=== PATIENT | male | born 1990 | race Caucasian/White ===

== ENCOUNTER 2016-09-17 21:23 | Emergency (ER) | payer SELFPAY ==
[2016-09-17] MEDS ORDERED: ONDANSETRON HCL 4 MG/2 ML 4 MG in SODIUM CHLORIDE 0.9% 100 ML 100 ML IV ONE (21:37)
[2016-09-17] MEDS ORDERED: SODIUM CHLORIDE 0.9% 1000ML 1,000 ML IV NR ×4 (21:45→23:45)
[2016-09-17] MEDS ORDERED: ONDANSETRON HCL 4 MG/2 ML SOL IV ONE (21:47)
[2016-09-17] MEDS ORDERED: ONDANSETRON HCL 4 MG/2 ML SOL ONE (21:48)
[2016-09-17] MEDS ORDERED: SODIUM CHLORIDE 0.9% 1000ML 1,000 ML IV ONE ×4 (21:50→22:57)
[2016-09-17 21:51] LABS: HEMATOCRIT 41 % (39-53); MEAN CORPUSCULAR VOLUME 89 fL (80-100)
[2016-09-17 22:01] LABS: BASOPHILS % (MANUAL) 0 % (0-3); EOSINOPHILS % (MANUAL) 0 % (0-9); LYMPHOCYTES % (MANUAL) 0 % (10-50); NORMAL RBCS PRESENT
[2016-09-17 22:02] LABS: ALBUMIN 3.5 gm/dl (3.4-5.0); ALT 150 IU/L (14-63); CALCIUM 8.9 mg/dl (8.5-10.1); GLOM FILT RATE 51 mL/min (>60); POTASSIUM 3.2 mMol/L (3.5-5.1); SODIUM 138 mMol/L (136-145)
[2016-09-17 22:05] LABS: SALICYLATE < 2.8 mg/dl (2.8-30.0)
[2016-09-17] MEDS ORDERED: POTASSIUM CHLORIDE 10 MEQ TER PO ONE (22:12)
[2016-09-17] MEDS ORDERED: POTASSIUM CHLORIDE 10 MEQ TER ONE (22:18)
[2016-09-17] MEDS ORDERED: ACETAMINOPHEN 325 MG ONE (22:32)
[2016-09-17] MEDS ORDERED: ACETAMINOPHEN 325 MG PO ONE (22:34)
[2016-09-17] MEDS ORDERED: MAGNESIUM SULFATE 1 GM/2 ML SOL IV ONE (23:03)
[2016-09-17 23:04] LABS: APPEARANCE,URINE Clear; BILIRUBIN,URINE NEGATIVE (NEGATIVE); COLOR,URINE Yellow; GLUCOSE, URINE (UA) NEGATIVE (NEGATIVE); KETONES,URINE NEGATIVE (NEGATIVE); LEUKOCYTE ESTERASE ,URINE NEGATIVE (NEGATIVE); NITRATE,URINE NEGATIVE (NEGATIVE); OCCULT BLOOD,URINE NEGATIVE (NEG-TRACE); UROBILINOGEN,URINE 0.2 (0.2-1.0 EU)
[2016-09-17] MEDS ORDERED: MAGNESIUM SULFATE 5 GM/10 ML SOL ONE (23:06)
[2016-09-17 23:09] LABS: AMPHETAMINES POSITIVE (NEGATIVE); METHADONE NEGATIVE (NEGATIVE); OPIATES(OP13) NEGATIVE (NEGATIVE); RBC,URINE 0-2 (0-3AV/HPF); TRICYCLIC ANTIDEPRESSANTS NEGATIVE (NEGATIVE)
[2016-09-17 23:10] LABS: OXYCODONE(OXY) NEGATIVE (NEGATIVE); PROPOXYPHENE(PPX) NEGATIVE (NEGATIVE)
[2016-09-18 00:10] VITALS: RESP 20; O2SAT 95
[2016-09-18 00:19] LABS: CALCIUM 8.4 mg/dl (8.5-10.1); GLOM FILT RATE 60 mL/min (>60); POTASSIUM 3.7 mMol/L (3.5-5.1); SODIUM 140 mMol/L (136-145)
[2016-09-18 00:44] VITALS: BP 92/65; PULSE 104; TEMP 99.2
[2016-09-18] MEDS ORDERED: SODIUM CHLORIDE 0.9% 1000ML 1,000 ML IV ONE ×2 (01:00)
== END 2016-09-18 01:12 | disposition home or self-care (01) | DRG 918 ==
LOC: ED 21:23
DX: T43.621A Poisoning by amphetamines, accidental (unintentional), initial encounter (principal); E87.2 Acidosis; I95.9 Hypotension, unspecified; R00.0 Tachycardia, unspecified; M62.838 Other muscle spasm; E87.6 Hypokalemia; E83.42 Hypomagnesemia; N28.9 Disorder of kidney and ureter, unspecified
CPT/HCPCS: 36415; 71010; 80048; 80053; 80305; 80307; 81001; 82550; 83735; 84484; 85007; 85027; 85610; 93005; 99285; J2405; J3475